=== PATIENT | male | born 1940 | race African-American/Black ===

== ENCOUNTER 2018-01-01 11:27 | Emergency (ER) | payer MEDICARE, SELFPAY ==
[2018-01-01 11:29] VITALS: BP 148/62; PULSE 90; RESP 16; TEMP 36.4; BMI 23.8
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
[2018-01-01] MEDS: Acetaminophen 500 MG Tablet 1000 MG PO (12:29)
[2018-01-01] MEDS: 0.9% Normal Saline 1,000 ML 1000 ML IV (12:29)
[2018-01-01 12:36] LABS: Hematocrit 37.7 % (40-54); Hemoglobin 11.6 g/dl (13.0-16.5); Mean Corp Hgb Conc 30.8 g/gl (32-36); Mean Corpuscular Volume 90.8 fL (80-94); Mean Platelet Vol. 10.8 fl (6.2-12.0); Platelet Count 159 K/mm3 (150-450); RBC Distribution Width CV 14.7 % (11.6-14.6); RBC Distribution Width SD 48.3 fl (35.1-43.9); Red Blood Count 4.15 M/mm3 (4.6-6.2); White Blood Count 5.4 K/mm3 (4.4-11.0)
[2018-01-01 12:37] LABS: Scan Indicated on CBC? Y/N NO
[2018-01-01 12:48] VITALS: BP 121/63; PULSE 79; RESP 16; O2SAT 97
[2018-01-01 12:51] LABS: Anion Gap 6 (5-15); BUN 15 mg/dL (7-18); BUN/Creat Ratio 12.6 RATIO (10-20); Calcium,Total 8.9 mg/dL (8.5-10.1); Chloride 108 mmol/L (98-107); Creatinine, Serum 1.19 mg/dL (0.70-1.30); EST Glomerular Filtration Rate 63 mL/min (>60); Est Glom Filt Rate - Afr Amer 76 mL/min (>60); Estimated Creatinine Clearance 49.37 ml/min; Glucose 99 mg/dL (74-106); Potassium 4.4 mmol/L (3.5-5.1); Sodium Level 144 mmol/L (136-145)
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
[2018-01-01 14:31] VITALS: BP 131/53; PULSE 73; RESP 16; O2SAT 100
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
[2018-01-01 16:00] VITALS: BP 129/60; PULSE 72; RESP 16; O2SAT 100
== END 2018-01-01 17:30 | disposition short-term general hospital (02) ==
PROVIDERS: Emergency Provider Emergency Medicine; Family Provider Family Medicine; PCP Family Medicine
DX: S36.409A Unspecified injury of unspecified part of small intestine, initial encounter (principal); V59.49XA Driver of pick-up truck or van injured in collision with other motor vehicles in traffic accident, initial encounter; Y93.9 Activity, unspecified; Y92.410 Unspecified street and highway as the place of occurrence of the external cause; Y99.9 Unspecified external cause status; R91.1 Solitary pulmonary nodule; E11.9 Type 2 diabetes mellitus without complications
CPT/HCPCS: 70450; 71046; 72125; 73030; 74177; 80048; 85027; 96360; 99285; J7030; Q9967; A4216